=== PATIENT | female | born 1990 | race Caucasian/White ===

== ENCOUNTER 2020-03-23 11:37 | Emergency (ER) | payer OTHER, SELFPAY ==
[2020-03-23 12:01] VITALS: BP 120/83; PULSE 98; RESP 16; TEMP 36.6; O2SAT 100; BMI 41.1
--- NOTE | 2020-03-23 12:16 | ED.GENADULT ---
HPI - General Adult General Chief complaint: General Medical Stated complaint: breast pain Time Seen by Provider: 03/23/20 12:15 History of Present Illness HPI narrative: Patient with history of double mastectomy and breast cancer who has moved here from out of [facility] complains of a sore on her left breast that is painful it has developed over the last 3-4 days, no fever no chills Discomfort is minor Related Data Previous Rx's Medication Instructions Recorded clindamycin HCl 300 mg PO QID 7 Days #28 cap 03/23/20 Allergies Allergy/AdvReac Type Severity Reaction Status Date / Time Penicillins Allergy Anaphylaxis Verified 03/23/20 12:01 Review of Systems Review of Systems: No fever no chills no weakness no confusion no chest pain no abdominal pain no other rash Yes all other systems are reviewed and are negative [facility] Past Medical History Attestation statement: The following information was validated with the patient. [facility] Narrative: History of breast cancer with double mastectomy, she recently moved here from [place] and her oncologist and breast surgeon are in [place], she has no local care Source: nursing notes reviewed Medical History (Updated 03/23/20 @ 12:29 by CATA Portillo) Asthma Breast cancer Depression HTN (hypertension) Tachycardia Surgical History (Updated 03/23/20 @ 12:09 by Sophia Mcmahan) H/O breast reconstruction History of mastectomy Physical Exam Vital Signs: Vital Signs: Last Vital Signs Temp 97.8 F 03/23/20 12:01 Pulse 98 03/23/20 12:01 Resp 16 03/23/20 12:01 BP 120/83 03/23/20 12:01 Pulse Ox 100 03/23/20 12:01 Body Mass Index 41.1 General appearance comfortable no acute distress A&O x3 Neck is supple The chest exam shows the left breast with a 2 cm by 3 cm scabbed area with some mild surrounding erythema, no fluctuance no discharge no significant tenderness no warmth Extremities is full range of motion x4 Neuro no focal deficit Course Course Course Narrative: No abscess to drain, patient is treated for cellulitis With a history of cancer double mastectomy and a lesion on the breast I wanted to ensure close follow-up so I called the surgeon's office and they can see the patient in 4 days and the patient call the office to confirm the appointment so an appointment was made with Dr. Canales for Thursday at 02:00 o'clock Discharge Plan Discharge Clinical Impression: Cellulitis of left breast Patient Disposition: Home, Self-Care Additional Instructions: I called the office of Dr. Canales surgeon and they can see you Thursday at 02:00 o'clock We started antibiotic clindamycin This antibiotic can cause bad diarrhea so take probiotics to prevent antibiotic associated diarrhea Return to the ER any time for worse pain and swelling, spreading redness, fever, any worse condition or any concerns Most important is close follow-up with a surgeon for further evaluation Prescriptions: New clindamycin HCl 300 mg capsule 300 mg PO QID 7 Days Qty: 28 RF: 0 Referrals: Cristino Canales MD [Physician] - 5 days (Patient with history of breast cancer in double mastectomy presents with a left breast infection There was no abscess that was treated with clindamycin and I called the office an appointment is made for next Thursday) Interventions: ED Discharge Assessment Last Done: 03/23/20 12:53 Discharge Date/Time: 03/23/20 12:56
--- NOTE | 2020-03-23 12:38 | PC.NURSE ---
SEEN BY PROVIDER. MEDICATED PER ORDERS. PT CALLING FOR F/U APPOINTMENT
== END 2020-03-23 12:56 | disposition home or self-care (01) ==
PROVIDERS: Emergency Provider Emergency Medicine
DX: N61.0 Mastitis without abscess (principal)
CPT/HCPCS: 99283

== ENCOUNTER → 2020-03-27 13:49 | Outpatient (BNVA) | payer OTHER, SELFPAY | PROVIDERS: Visit Provider Surgery | DX: Z76.89 Persons encountering health services in other specified circumstances (principal) ==

== ENCOUNTER → 2020-04-04 09:18 | Outpatient (BNVA) | payer OTHER, SELFPAY | PROVIDERS: Visit Provider Surgery | DX: Z76.89 Persons encountering health services in other specified circumstances (principal) ==

== ENCOUNTER → 2020-04-20 08:39 | Outpatient (BNVA) | payer OTHER, SELFPAY | PROVIDERS: Visit Provider Surgery | DX: Z76.89 Persons encountering health services in other specified circumstances (principal) ==

== ENCOUNTER 2021-05-09 07:09 | Emergency (ER) | payer OTHER, SELFPAY ==
--- NOTE | ~2021-05-09 | XR_ITS ---
EXAMINATION: XR CHEST CLINICAL INFORMATION: Cough and fever COMPARISON: None TECHNIQUE: Frontal view of the chest was obtained. FINDINGS: Surgical bobbi overlying the lung chaudhary. There is no convincing evidence for an underlying infiltrate. The cardiac silhouette is within normal limits. There is no effusion. XR/XR chest 1V IMPRESSION: No acute finding.
[2021-05-09 07:20] VITALS: BP 121/71; PULSE 120; RESP 22; TEMP 37.6; O2SAT 97; BMI 36.6
--- NOTE | 2021-05-09 07:28 | ED_ITS ---
HPI - URI/Sore Throat General Chief Complaint: Upper Respiratory Symptoms Stated Complaint: upper resp issues asthma Time Seen by Provider: 05/09/21 07:26 Source: patient Mode of arrival: ambulatory Limitations: no limitations History of Present Illness MD elicited complaint: fever, cough, rhinorrhea and sinus pain Pertinent past history: asthma Onset (ago): week(s) (3) Consistency: progressively worsening Severity: moderate Description of mucous: clear Able to tolerate fluids by mouth: Yes Exacerbating factors: other (coughing) Relieving factors: nothing Context: recent travel (did go to at begining of April she is vaccinated - x 2) Associated symptoms: fever, chills, headache, rhinorrhea, nasal congestion, cough and shortness of breath Treatments prior to arrival: cold medicine Related Data Home Medications Medication Instructions Recorded Confirmed albuterol sulfate 90 mcg/actuation 1 inh INHALATION Q4-6H PRN 05/03/20 01/25/21 aerosol inhaler atenolol 50 mg tablet 1 tab PO BID 05/03/20 01/25/21 ondansetron 4 mg disintegrating 1 tab PO Q6-8H PRN 05/03/20 01/25/21 tablet umeclidinium 62.5 mcg/actuation 1 inh INHALATION DAILY 05/03/20 01/25/21 blister powder for inhalation (Incruse Ellipta) Previous Rx's Medication Instructions Recorded gabapentin 300 mg capsule 1 cap PO DAILY #90 cap 05/03/20 tamoxifen 20 mg tablet 10 mg PO BID #60 tab 10/12/20 azithromycin 250 mg tablet 250 mg PO DAILY 4 Days #4 tab 05/09/21 benzonatate 100 mg capsule 100 mg PO TID PRN #30 cap 05/09/21 hydrocodone-homatropine 5 mg-1.5 5 ml PO Q4-6H PRN #473 ml 05/09/21 mg/5 mL oral syrup (Hydrocodone Compound) Allergies Allergy/AdvReac Type Severity Reaction Status Date / Time Penicillins Allergy Anaphylaxis Verified 05/03/20 08:45 Review of Systems 2 Review of Systems: Constitutional : pos Fever, pos Chills ENT/Mouth : No Hoarseness, No sore throat, No Rhinorrhea Eyes: No Redness, No Discharge, No Vision Changes Cardiovascular : No Chest Pain, positive SOB, positive Dyspnea on Exertion, No Edema Respiratory : positive Cough, No Sputum, positive Wheezing, Gastrointestinal : No Nausea, No Vomiting, No Diarrhea, No abdominal Pain Genitourinary : No Dysuria, No Hematuria Musculoskeletal : No joint pain, No Myalgias Skin : No rash Neuro : pos Weakness, No Numbness, No Headache Psych : No anxiety, depression Heme/Lymph: No Bruising, No Bleeding Endocrine : No Polyuria, No Polydipsia All other systems reviewed and are negative [facility] Past Medical History Medical History Anal fissure Asthma Cancer of right breast, stage 1, estrogen receptor positive Depression HTN (hypertension) Tachycardia Surgical History H/O breast reconstruction History of mastectomy Family History Family History Maternal Aunt History of breast cancer History of thyroid cancer Paternal Grandfather History of prostate cancer Social History Social History Alcohol intake: never Patient Tobacco Use Status: Never used Tobacco Use of substances other than those prescribed or required for medical reasons: No Advance Directives: No Advance Directives Information Provided: No Patient : No Physical Exam Vital Signs: Vital Signs: Last Vital Signs Temp 98.6 F 05/09/21 10:13 Pulse 95 05/09/21 10:13 Resp 18 05/09/21 10:13 BP 98/65 05/09/21 10:13 Pulse Ox 98 05/09/21 10:13 BMI result Body Mass Index 36.6 Appearance: Alert. Oriented X3. No acute distress. Eyes: Pupils equal, round and reactive to light. ENT: Pharynx normal. L ear bulging TM with moderate erythema small effusion no perforation Neck: Normal inspection. Neck supple. CVS: tachycardic heart rate and rhythm. Pulses normal. Respiratory: No respiratory distress. Breath sounds diminished throughout with spastic cough Abdomen: Soft and nontender. Skin: Skin warm and dry. Normal skin color. Normal skin turgor. Extremities: No lower extremity edema. No calf ttp Neuro: Oriented X 3. No motor deficit. No sensory deficit. Course Course Course Narrative: patient's biggest issue is with dry cough - attempting to aid in anti tussive and to help her sleep azithromycin for L AOM cough is very forced at this time, did discuss with patient that given her forced coughing, clear lungs no hypoxia that she may cause damage, there is a component of anxiety, will add on ativan to allow her to rest and get rid of the cough reflex she has at this time clear lungs, no wheezes other than cough has done well no hypoxia anticipate admisssion MDM - URI/Sore Throat MDM Narrative Medical decision making narrative: 30 yo female with URI symptoms, fevers, cough, worsening symptoms over three weeks vaccinated x 2 - here with fevers, cough, L AOM - at this time will need 5mg neb for asthma, IV steroids, fluids, tylenol, antibiotics for L AOM - dispo per results and improvement. She has hx of cancer but this seems infectious and not related to PE. Lab Data Labs: Lab Results 05/09/21 Range/Units 07:27 Influenza Type A (PCR) NEGATIVE (Negative) Influenza Type B (PCR) NEGATIVE (Negative) RSV RNA Qual (PCR) NEGATIVE (Negative) SARS-CoV-2 RNA (RT-PCR) NEGATIVE (Negative) Discharge Plan Discharge Clinical Impression: Otitis media, Bronchitis Patient Disposition: Home, Self-Care Instructions: Ear Infection (ED), Acute Bronchitis (ED) Additional Instructions: return to ED for any worsening symptoms or concerns Prescriptions: New azithromycin 250 mg tablet 250 mg PO DAILY 4 Days Qty: 4 RF: 0 benzonatate 100 mg capsule 100 mg PO TID PRN (Reason: cough) Qty: 30 RF: 0 hydrocodone-homatropine [Hydrocodone Compound] 5-1.5 mg/5 mL syrup 5 ml PO Q4-6H PRN (Reason: cough) Qty: 473 RF: 0 No Action albuterol sulfate 90 mcg/actuation HFA aerosol inhaler 1 inh inhalation Q4-6H PRN (Reason: Shortness Of Breath) RF: 0 ondansetron 4 mg tablet,disintegrating 1 tab PO Q6-8H PRN (Reason: Nausea) RF: 0 atenolol 50 mg tablet 1 tab PO BID RF: 0 Incruse Ellipta 62.5 mcg/actuation blister with device 1 inh inhalation DAILY RF: 0 gabapentin 300 mg capsule 1 cap PO DAILY Qty: 90 RF: 4 tamoxifen 20 mg tablet 10 mg PO BID Qty: 60 RF: 10 Referrals: Physician,None [Primary Care Provider] - 3 days (if not better) Stand Alone Forms: Work/School Release
[2021-05-09] MEDS: 0.9 % Sodium Chloride 1,000 ML 999 ML IV (07:44)
[2021-05-09 07:48] VITALS: O2SAT 97
[2021-05-09] MEDS: Albuterol Sulfate (0.083%) 2.5 MG/3 ML VIAL.NEB 5 MG INHALE (07:48)
[2021-05-09 07:50] VITALS: PULSE 106; RESP 20; O2SAT 95
[2021-05-09] MEDS: Benzonatate 100 MG CAPSULE PO ×2 (07:53→09:06)
[2021-05-09] MEDS: methylPREDNISolone Sod Succ 125 MG/2 ML VIAL IVPUSH (07:53)
[2021-05-09 08:11] LABS: Influenza A PCR NEGATIVE (Negative); Influenza B PCR NEGATIVE (Negative); Resp Syncy Virus RNA Qual PCR NEGATIVE (Negative); SARS COV2 PCR INHOUSE NEGATIVE (Negative)
[2021-05-09] MEDS: HYDROcodone/Homat 5/1.5/5 ML 5 ML SYRUP PO (08:46)
[2021-05-09] MEDS: Azithromycin 500 MG TABLET PO (08:46)
[2021-05-09] MEDS: diphenhydrAMINE HCL 50 MG/ML VIAL 25 MG IVPUSH (09:06)
--- NOTE | 2021-05-09 09:10 | PC.NURSE ---
pt medicated further per emar, has profound cough, given ice water. lights dimmed for comfort. continuing to monitor for effect.
[2021-05-09] MEDS: Morphine Sulfate 4 MG/ML CARTRIDGE IVPUSH (09:22)
[2021-05-09] MEDS: LORazepam 2 MG/ML VIAL 1 MG IVPUSH (09:55)
[2021-05-09 10:13] VITALS: BP 98/65; PULSE 95; RESP 18; TEMP 37; O2SAT 98
--- NOTE | 2021-05-09 11:05 | PC.NURSE ---
pt needs to find safe ride home d/t meds given during visit. pt sts feeling dizzy at this time, given commode to use restroom at bedside.
== END 2021-05-09 11:33 | disposition home or self-care (01) ==
PROVIDERS: Emergency Provider Emergency Medicine
DX: J40 Bronchitis, not specified as acute or chronic (principal); H66.93 Otitis media, unspecified, bilateral; R50.9 Fever, unspecified; R51.9 Headache, unspecified; R06.02 Shortness of breath; Z20.822 Contact with and (suspected) exposure to COVID-19; Z79.899 Other long term (current) drug therapy
CPT/HCPCS: 0241U; 71045; 94640; 94644; 96361; 96374; 96375; 99285; J1200; J2060; J2270; J2930

== ENCOUNTER → 2024-01-19 10:35 | Outpatient (RCR) | payer BC, SELFPAY ==
[2020-05-03 08:43] VITALS: BP 121/69; PULSE 88; RESP 18; TEMP 36.5; O2SAT 98; BMI 41.1
--- NOTE | 2020-05-03 09:16 | PM.HEMONCCN ---
Subjective - Subjective Chief complaint: History of right breast cancer Consult date: 05/03/20 Medical Summary: Diagnosis: RT breast cancer 2018 in [place]. Right radical mastectomy with reconstruction and left prophylactic mastectomy with flap reconstruction. Diagnosed in 2018 when she was 27 years old. She was diagnosed with an right breast infiltrating ductal carcinoma, grade 1, ER [place] positive , sentinel node negative. The tumor apparently measured approximately 2 cm and was palpable on self examination. She underwent genetic testing which was negative. Her family history is significant for maternal aunt with breast cancer at the age of 48. Another maternal aunt was treated for thyroid cancer. The patient subsequently underwent a right mastectomy with sentinel node biopsy, immediate reconstruction as well as a prophylactic left mastectomy with immediate reconstruction using an abdominal flap. The surgery was performed at the [facility] , and was complicated by a an abdominal wound infection on the left-hand side. She subsequently required a revision of the lateral portion of both breasts because of fat folds. She did not undergo chemotherapy but was started on tamoxifen. HPI - Consult Narrative Reason for consult: Right breast cancer Narrative: Carolina Waters is a 29 year old female who was diagnosed with left breast infiltrating ductal carcinoma at the age of [age]. She has undergone surgery, mastectomy followed by start of tamoxifen. She is taking tamoxifen 10 mg twice a day. She does get some nausea because of tamoxifen for which she takes Zofran as needed. It also causes significant hot flashes for which she is on gabapentin. She presented to the emergency department at [facility] a few weeks ago because of open wound on the reconstructed left breast site. She was treated with antibiotics, the skin lesion has since healed nicely. She was seen by Dr. Canales and has been recommended to Oncology for further management. She has not had or diagnostic mammogram since her last mammogram in 2018. 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 Review of Systems - Constitutional Reports no additional constitutional complaints - Cardiovascular Reports no additional cardiovascular complaints - Respiratory Reports no additional respiratory complaints - Gastrointestinal Reports no additional gastrointestinal complaints - Genitourinary Reports hot flashes - Integumentary/Breasts Skin/Breast: Reports no additional skin complaints Oncology Screenings - ECOG Performance Status ECOG Performance Status: 0 [facility] Medical History: Medical History (Last Updated 05/03/20 @ 15:56 by Francie Lloyd MD) Anal fissure Asthma Cancer of right breast, stage 1, estrogen receptor positive Depression HTN (hypertension) Tachycardia Family History: Family History (Last Reviewed 04/20/20 @ 09:20 by Cristino Canales MD) Maternal Aunt History of breast cancer History of thyroid cancer Paternal Grandfather History of prostate cancer Surgical History: Surgical History (Last Reviewed 04/20/20 @ 09:20 by Cristino Canales MD) H/O breast reconstruction History of mastectomy Smoking status: Never smoker Home Medications and Allergies Home Medications Medication Instructions Recorded Confirmed Type albuterol sulfate 1 inh INHALATION Q4-6H PRN 05/03/20 05/03/20 History atenolol 1 tab PO BID 05/03/20 05/03/20 History buspirone 1 tab PO BID 05/03/20 05/03/20 History mirtazapine 1 tab PO BEDTIME 05/03/20 05/03/20 History montelukast 1 tab PO DAILY 05/03/20 05/03/20 History ondansetron 1 tab PO Q6-8H PRN 05/03/20 05/03/20 History umeclidinium [Incruse Ellipta] 1 inh INHALATION DAILY 05/03/20 05/03/20 History venlafaxine 1 tab PO DAILY 05/03/20 05/03/20 History Allergies Allergy/AdvReac Type Severity Reaction Status Date / Time Penicillins Allergy Anaphylaxis Verified 05/03/20 08:45 Physical Exam Vital signs: Vital Signs Temp 97.7 F 05/03/20 08:43 Pulse 88 05/03/20 08:43 Resp 18 05/03/20 08:43 BP 121/69 05/03/20 08:43 Pulse Ox 98 05/03/20 08:43 Intake & Output 05/02/20 05/03/20 05/03/20 18:59 06:59 18:59 Other: Weight 108.6 kg Weight 108.6 kg - Constitutional Present: no acute distress - Routine HEENT Exam Head: Present: normal inspection Eye: Present: EOMI, normal appearance - Routine Neck Exam Absent: lymphadenopathy, thyromegaly - Routine Chest/Breast/Axilla Exam Breast: Present: erythema, left mastectomy Axillae: Absent: lymphadenopathy Comments: Left breast, shows superficial linear wound about 1 cm. No associated swelling or discharge. Mild erythema. - Routine Respiratory Exam Present: CTAB - Routine Cardiovascular Exam Cardiovascular: Present: RRR, S1, S2 Comments: Healed surgical scar left lower abdomen and flank. No associated nodularity or tenderness. - Routine Abdominal Exam Present: soft - Routine Skin Exam Present: intact. Absent: erythema Hem/Onc Consult Result - Labs CBC & Chem 7: 05/03/20 09:20 05/03/20 09:20 Assessment and Plan (1) Infiltrating ductal carcinoma of right breast, estrogen receptor positive, stage 1 Status: Acute 1. This is the pleasant 29-year-old premenopausal woman diagnosed with right breast infiltrating ductal carcinoma in 2018 at age 27. She underwent right radical mastectomy/sentinel node biopsy, immediate reconstruction followed by left prophylactic mastectomy and delayed flap reconstruction. This was stage I cancer, ER positive and patient was started on tamoxifen in 2018. I have requested pathology report and records from her previous oncologist in [place]. She is doing well on tamoxifen, does have some hot flashes for which she is on gabapentin. She divides the dose, 10 mg twice daily which she tolerates better, causes less nausea. She developed a wound/ulcer on the skin of her left breast which was superficial and now healing well. Breast examination and blood work today is normal. She does not need any imaging studies since she has had bilateral reconstruction. She will be followed closely with physical examination. She has had genetic testing done and reportedly this was negative. Follow-up in 6 months.
[2020-05-03 09:24] LABS: MANUAL DIFF FLAG NO
[2020-05-03 09:27] LABS: Basophils Absolute Auto 0.1 X10*3/uL (0.0-0.2); Basophils Percent Auto 1.1 % (0-2); Hematocrit 37.8 % (37-47); Hemoglobin 12.1 g/dl (12.0-16.0); Lymphocytes Absolute Auto 2.6 X10*3/uL (1.2-4.9); Lymphocytes Percent Auto 47.4 % (20-40); Mean Corpuscular Hemoglobin 27.6 pg (27.0-33.0); Mean Corpuscular Volume 86.1 fL (80-98); Mean Platelet Volume 10.2 fL (9.4-12.3); Monocytes Absolute Auto 0.5 X10*3/uL (0.1-1.2); Monocytes Percent Auto 9.1 % (2-11); Neutrophils Absolute Auto 2.3 X10*3/uL (2.0-8.3); Neutrophils Percent Auto 42.4 % (45-73); Platelet Count 266 X10*3/uL (160-400); Red Blood Count 4.39 X10*6/uL (4.20-5.50); Red Cell Distribution Width 12.1 % (11.0-16.0); White Blood Count 5.4 X10*3/uL (4.8-10.8)
[2020-05-03 09:52] LABS: Alanine Aminotransferase 19 U/L (0-31); Albumin Level 3.9 g/dL (3.5-5.0); Alkaline Phosphatase 40 U/L (39-117); Anion Gap 10 (12-20); Aspartate Amino Transferase 18 U/L (5-31); Bilirubin Total 0.3 mg/dL (0.0-1.0); Blood Urea Nitrogen 11 mg/dL (9-16); Calcium 8.6 mg/dL (8.4-10.2); Carbon Dioxide 28 mmol/L (22-29); Chloride 103 mmol/L (96-108); Creatinine Clr Calc Pharmacy 87.6; Estimated Glomerular Filt Rate 57; Glucose Random 85 mg/dL (60-115); Potassium 4.2 mmol/l (3.3-5.1); Sodium 137 mmol/L (135-145); Total Protein 6.2 g/dL (6.5-8.0)
--- NOTE | 2020-05-03 11:21 | MHC.HEMONC ---
Patient here for consult. Summary updated with nurse. Provider seen patient. Labs drawn. Follow-up booked.
[2020-05-04 14:27] LABS: CA 27.29 17 U/mL (<38)
[2020-10-12 09:27] VITALS: BP 127/70; PULSE 86; RESP 14; TEMP 36.4; O2SAT 99; BMI 39.6
--- NOTE | 2020-10-12 09:33 | P.PNHO_ITS ---
Medical Summary - Medical Summary Date of Service: 10/12/20 Chief complaint: Follow-up Medical Summary: Diagnosis: RT breast cancer 2018 in [place]. Right radical mastectomy with reconstruction and left prophylactic mastectomy with flap reconstruction. Diagnosed in 2018 when she was 27 years old. She was diagnosed with an right breast infiltrating ductal carcinoma, grade 1, ER [place] positive , sentinel node negative. The tumor apparently measured approximately 2 cm and was palpable on self examination. She underwent genetic testing which was negative. Her family history is significant for maternal aunt with breast cancer at the age of 48. Another maternal aunt was treated for thyroid cancer. The patient subsequently underwent a right mastectomy with sentinel node biopsy, immediate reconstruction as well as a prophylactic left mastectomy with immediate reconstruction using an abdominal flap. The surgery was performed at the [facility] , and was complicated by a an abdominal wound infection on the left-hand side. She subsequently required a revision of the lateral portion of both breasts because of fat folds. She did not undergo chemotherapy but was started on tamoxifen. Interval History Interval history: patient is here in follow-up. She is doing okay but reports that she did not have health insurance for a few weeks and was not on tamoxifen. She reports irregular menstrual cycles. She has not yet established with a manager of financial or primary care physician. She has refills of tamoxifen. She denies any complaints pertaining to her breast implants. Left breast infection has now healed completely. Review of Systems - Constitutional Reports as per HPI, Reports no additional constitutional complaints - Cardiovascular Reports no additional cardiovascular complaints - Respiratory Reports no additional respiratory complaints - Gastrointestinal Reports no additional gastrointestinal complaints [facility] Medical History: Medical History (Last Updated 05/03/20 @ 15:56 by Francie Lloyd MD) Anal fissure Asthma Cancer of right breast, stage 1, estrogen receptor positive Depression HTN (hypertension) Tachycardia Family History: Family History (Last Reviewed 04/20/20 @ 09:20 by Cristino Canales MD) Maternal Aunt History of breast cancer History of thyroid cancer Paternal Grandfather History of prostate cancer Surgical History: Surgical History (Last Reviewed 04/20/20 @ 09:20 by Cristino Canales MD) H/O breast reconstruction History of mastectomy Social History: Social History (Last Updated 10/12/20 @ 09:30 by Anastasiya Schwab) Alcohol History: Alcohol intake: current Alcohol History Details: Alcohol intake frequency: holiday/special occasion Tobacco History: Patient Tobacco Use Status: Never used Tobacco Substance Use History: Use of substances other than those prescribed or required for medical reasons : No Oncology Screenings - ECOG Performance Status ECOG Performance Status: 0 Home Medications and Allergies Home Medications Medication Instructions Recorded Confirmed Type albuterol sulfate 1 inh INHALATION Q4-6H PRN 05/03/20 05/03/20 History atenolol 1 tab PO BID 05/03/20 05/03/20 History buspirone 1 tab PO BID 05/03/20 05/03/20 History mirtazapine 1 tab PO BEDTIME 05/03/20 05/03/20 History montelukast 1 tab PO DAILY 05/03/20 05/03/20 History ondansetron 1 tab PO Q6-8H PRN 05/03/20 05/03/20 History umeclidinium [Incruse Ellipta] 1 inh INHALATION DAILY 05/03/20 05/03/20 History venlafaxine 1 tab PO DAILY 05/03/20 05/03/20 History Allergies Allergy/AdvReac Type Severity Reaction Status Date / Time Penicillins Allergy Anaphylaxis Verified 05/03/20 08:45 Exam Vital signs: Vital Signs Temp 97.5 F 10/12/20 09:27 Pulse 86 10/12/20 09:27 Resp 14 10/12/20 09:27 BP 127/70 10/12/20 09:27 Pulse Ox 99 10/12/20 09:27 Intake & Output 10/11/20 10/12/20 10/12/20 18:59 06:59 18:59 Other: Weight 104.8 kg [place] Weight in Grams [id number] Weight 104.8 kg Body Mass Index 39.6 - Constitutional Present: no acute distress - Routine HEENT Exam Head: Present: normal inspection - Routine Respiratory Exam Present: CTAB - Routine Cardiovascular Exam Cardiovascular: Present: RRR, S1, S2 - Routine Abdominal Exam Present: soft - Routine Skin Exam Present: intact. Absent: erythema Data - Labs CBC & Chem 7: 05/03/20 09:20 05/03/20 09:20 Labs: 05/03/20 09:20 CA 27.29 Routine Complete Blood Count Auto Diff Routine Comprehensive Met. Panel Routine Laboratory Last Values WBC 5.4 X10*3/uL (4.8-10.8) 05/03/20 09:20 RBC 4.39 X10*6/uL (4.20-5.50) 05/03/20 09:20 Hgb 12.1 g/dl (12.0-16.0) 05/03/20 09:20 Hct 37.8 % (37-47) 05/03/20 09:20 MCV 86.1 fL (80-98) 05/03/20 09:20 MCH 27.6 pg (27.0-33.0) 05/03/20 09:20 MCHC 32.0 g/dl (31.0-35.0) 05/03/20 09:20 RDW 12.1 % (11.0-16.0) 05/03/20 09:20 Plt Count 266 X10*3/uL (160-400) 05/03/20 09:20 MPV 10.2 fL (9.4-12.3) 05/03/20 09:20 Immature Gran % (Auto) 0.0 % (0.0-0.4) 05/03/20 09:20 Neut % (Auto) 42.4 % (45-73) L 05/03/20 09:20 Lymph % (Auto) 47.4 % (20-40) H 05/03/20 09:20 [place] % (Auto) 9.1 % (2-11) 05/03/20 09:20 Eos % (Auto) 0.0 % (0-4) 05/03/20 09:20 Baso % (Auto) 1.1 % (0-2) 05/03/20 09:20 Lymph # (Auto) 2.6 X10*3/uL (1.2-4.9) 05/03/20 09:20 [place] # (Auto) 0.5 X10*3/uL (0.1-1.2) 05/03/20 09:20 Eos # (Auto) 0.0 X10*3/uL (0.0-0.4) 05/03/20 09:20 Baso # (Auto) 0.1 X10*3/uL (0.0-0.2) 05/03/20 09:20 Abs Immat Gran (auto) 0.00 X10*3/uL (0.00-0.03) 05/03/20 09:20 Absolute Neuts (auto) 2.3 X10*3/uL (2.0-8.3) 05/03/20 09:20 Absolute Nucleated RBC 0.000 X10*3/uL (0.0-0.012) 05/03/20 09:20 Nucleated RBC % (auto) 0.0 /100WBC (0.0-0.2) 05/03/20 09:20 Sodium 137 mmol/L (135-145) 05/03/20 09:20 Potassium 4.2 mmol/l (3.3-5.1) 05/03/20 09:20 Chloride 103 mmol/L (96-108) 05/03/20 09:20 Carbon Dioxide 28 mmol/L (22-29) 05/03/20 09:20 Anion Gap 10 (12-20) L 05/03/20 09:20 BUN 11 mg/dL (9-16) 05/03/20 09:20 Creatinine 1.13 mg/dL (0.5-1.4) 05/03/20 09:20 Estim Creat Clear Calc 87.6 05/03/20 09:20 Estimated GFR 57 05/03/20 09:20 Random Glucose 85 mg/dL (60-115) 05/03/20 09:20 Calcium 8.6 mg/dL (8.4-10.2) 05/03/20 09:20 Total Bilirubin 0.3 mg/dL (0.0-1.0) 05/03/20 09:20 AST 18 U/L (5-31) 05/03/20 09:20 ALT 19 U/L (0-31) 05/03/20 09:20 Alkaline Phosphatase 40 U/L (39-117) 05/03/20 09:20 Total Protein 6.2 g/dL (6.5-8.0) L 05/03/20 09:20 Albumin 3.9 g/dL (3.5-5.0) 05/03/20 09:20 CA 27-29 17 U/mL (<38) 05/03/20 09:20 Progress Note: A/P (1) Infiltrating ductal carcinoma of right breast, estrogen receptor positive, stage 1 Status: Chronic Assessment and plan: 1. This is the pleasant 30-year-old premenopausal woman diagnosed with right breast infiltrating ductal carcinoma in 2018 at age 27. She underwent right radical mastectomy/sentinel node biopsy, immediate reconstruction followed by left prophylactic mastectomy and delayed flap reconstruction. This was stage I cancer, ER positive and patient was started on tamoxifen in 2018. I have requested pathology report and records from her previous oncologist in [place]. She is doing well on tamoxifen, does have some hot flashes for which she is on gabapentin. She divides the dose, 10 mg twice daily which she tolerates better, causes less nausea. Physical examination today was normal. Follow-up in 6 months. - Time Spent With Patient Total time spent is greater than 50% in coordination of care (as documented) at patient's floor/unit and/or counseling patient: 15 - 24 minutes
--- NOTE | 2020-10-12 10:51 | MHC.HEMONCMA ---
Patient came in for a follow up, states she is doing well. The patient states that she has not had insurance for over a month and has not been taking her medications. She states that she needs refills on all of them and needs to get a PCP and a Rn Anesthesiology since she moved here from [place]. Clinical summary was reviewed and updated. Patient had labs and will return in 6 months for a follow up. Dr Lloyd referred the patient to Dr Bello for Rn Anesthesiology, I will call the patient with the date and time for this appt once I get one.
--- NOTE | 2021-01-25 09:44 | P.PNHO_ITS ---
Medical Summary - Medical Summary Date of Service: 01/25/21 Chief complaint: Follow-up Medical Summary: Diagnosis: RT breast cancer 2018 in [place]. Right radical mastectomy with reconstruction and left prophylactic mastectomy with flap reconstruction. Diagnosed in 2018 when she was 27 years old. She was diagnosed with an right breast infiltrating ductal carcinoma, grade 1, ER ME positive , sentinel node negative. The tumor apparently measured approximately 2 cm and was palpable on self examination. She underwent genetic testing which was negative. Her family history is significant for maternal aunt with breast cancer at the age of 48. Another maternal aunt was treated for thyroid cancer. The patient subsequently underwent a right mastectomy with sentinel node biopsy, immediate reconstruction as well as a prophylactic left mastectomy with immediate reconstruction using an abdominal flap. The surgery was performed at the [facility] , and was complicated by a an abdominal wound infection on the left-hand side. She subsequently required a revision of the lateral portion of both breasts because of fat folds. She did not undergo chemotherapy but was started on tamoxifen. Interval History Interval history: patient is here in follow-up. She is taking tamoxifen regularly. Her menstr ual cycles have been quite heavy. She has an IUD. She denies any complaints pertaining to her breast implants. She is doing quite well overall. Review of Systems - Constitutional Reports as per HPI, Reports no additional constitutional complaints - Cardiovascular Reports no additional cardiovascular complaints - Respiratory Reports no additional respiratory complaints [facility] Medical History: Medical History (Last Reviewed 01/25/21 @ 09:59 by Jeanine Ch) Anal fissure Asthma Cancer of right breast, stage 1, estrogen receptor positive Depression HTN (hypertension) Tachycardia Family History: Family History (Last Reviewed 01/25/21 @ 09:59 by Jeanine Ch) Maternal Aunt History of breast cancer History of thyroid cancer Paternal Grandfather History of prostate cancer Surgical History: Surgical History (Last Reviewed 01/25/21 @ 09:59 by Jeanine Ch) H/O breast reconstruction History of mastectomy Social History: Social History (Last Reviewed 01/25/21 @ 09:59 by Jeanine Ch) Alcohol History: Alcohol intake: current Alcohol History Details: Alcohol intake frequency: holiday/special occasion Tobacco History: Patient Tobacco Use Status: Never used Tobacco Substance Use History: Use of substances other than those prescribed or required for medical reasons : No Oncology Screenings - ECOG Performance Status ECOG Performance Status: 1 Home Medications and Allergies Home Medications Medication Instructions Recorded Confirmed Type albuterol sulfate 90 mcg/actuation 1 inh INHALATION Q4-6H PRN 05/03/20 01/25/21 History aerosol inhaler atenolol 50 mg tablet 1 tab PO BID 05/03/20 01/25/21 History ondansetron 4 mg disintegrating 1 tab PO Q6-8H PRN 05/03/20 01/25/21 History tablet umeclidinium 62.5 mcg/actuation 1 inh INHALATION DAILY 05/03/20 01/25/21 History blister powder for inhalation (Incruse Ellipta) Allergies Allergy/AdvReac Type Severity Reaction Status Date / Time Penicillins Allergy Anaphylaxis Verified 05/03/20 08:45 Exam Vital signs: Vital Signs Temp 97.5 F 10/12/20 09:27 Pulse 86 10/12/20 09:27 Resp 14 10/12/20 09:27 BP 127/70 10/12/20 09:27 Pulse Ox 99 10/12/20 09:27 Weight 104.8 kg Body Mass Index 39.6 - Constitutional Present: no acute distress - Routine HEENT Exam Head: Present: normal inspection - Routine Respiratory Exam Present: CTAB - Routine Cardiovascular Exam Cardiovascular: Present: RRR, S1, S2 - Routine Abdominal Exam Present: soft - Routine Skin Exam Present: intact. Absent: erythema Data - Labs CBC & Chem 7: 01/25/21 10:12 05/03/20 09:20 Labs: 05/03/20 09:20 CA 27.29 Routine Complete Blood Count Auto Diff Routine Comprehensive Met. Panel Routine Laboratory Last Values WBC 5.4 X10*3/uL (4.8-10.8) 05/03/20 09:20 RBC 4.39 X10*6/uL (4.20-5.50) 05/03/20 09:20 Hgb 12.1 g/dl (12.0-16.0) 05/03/20 09:20 Hct 37.8 % (37-47) 05/03/20 09:20 MCV 86.1 fL (80-98) 05/03/20 09:20 MCH 27.6 pg (27.0-33.0) 05/03/20 09:20 MCHC 32.0 g/dl (31.0-35.0) 05/03/20 09:20 RDW 12.1 % (11.0-16.0) 05/03/20 09:20 Plt Count 266 X10*3/uL (160-400) 05/03/20 09:20 MPV 10.2 fL (9.4-12.3) 05/03/20 09:20 Immature Gran % (Auto) 0.0 % (0.0-0.4) 05/03/20 09:20 Neut % (Auto) 42.4 % (45-73) L 05/03/20 09:20 Lymph % (Auto) 47.4 % (20-40) H 05/03/20 09:20 Carson % (Auto) 9.1 % (2-11) 05/03/20 09:20 Eos % (Auto) 0.0 % (0-4) 05/03/20 09:20 Baso % (Auto) 1.1 % (0-2) 05/03/20 09:20 Lymph # (Auto) 2.6 X10*3/uL (1.2-4.9) 05/03/20 09:20 Carson # (Auto) 0.5 X10*3/uL (0.1-1.2) 05/03/20 09:20 Eos # (Auto) 0.0 X10*3/uL (0.0-0.4) 05/03/20 09:20 Baso # (Auto) 0.1 X10*3/uL (0.0-0.2) 05/03/20 09:20 Abs Immat Gran (auto) 0.00 X10*3/uL (0.00-0.03) 05/03/20 09:20 Absolute Neuts (auto) 2.3 X10*3/uL (2.0-8.3) 05/03/20 09:20 Absolute Nucleated RBC 0.000 X10*3/uL (0.0-0.012) 05/03/20 09:20 Nucleated RBC % (auto) 0.0 /100WBC (0.0-0.2) 05/03/20 09:20 Sodium 137 mmol/L (135-145) 05/03/20 09:20 Potassium 4.2 mmol/l (3.3-5.1) 05/03/20 09:20 Chloride 103 mmol/L (96-108) 05/03/20 09:20 Carbon Dioxide 28 mmol/L (22-29) 05/03/20 09:20 Anion Gap 10 (12-20) L 05/03/20 09:20 BUN 11 mg/dL (9-16) 05/03/20 09:20 Creatinine 1.13 mg/dL (0.5-1.4) 05/03/20 09:20 Estim Creat Clear Calc 87.6 05/03/20 09:20 Estimated GFR 57 05/03/20 09:20 Random Glucose 85 mg/dL (60-115) 05/03/20 09:20 Calcium 8.6 mg/dL (8.4-10.2) 05/03/20 09:20 Total Bilirubin 0.3 mg/dL (0.0-1.0) 05/03/20 09:20 AST 18 U/L (5-31) 05/03/20 09:20 ALT 19 U/L (0-31) 05/03/20 09:20 Alkaline Phosphatase 40 U/L (39-117) 05/03/20 09:20 Total Protein 6.2 g/dL (6.5-8.0) L 05/03/20 09:20 Albumin 3.9 g/dL (3.5-5.0) 05/03/20 09:20 CA 27-29 17 U/mL (<38) 05/03/20 09:20 Assessment and Plan Patient Active problem list reviewed?: Yes (1) Infiltrating ductal carcinoma of right breast, estrogen receptor positive, stage 1 Status: Chronic Assessment and plan: 1. This is the pleasant 30-year-old premenopausal woman diagnosed with right breast infiltrating ductal carcinoma in 2018 at age 27. She underwent right radical mastectomy/sentinel node biopsy, immediate reconstruction followed by left prophylactic mastectomy and delayed flap reconstruction. This was stage I cancer, ER positive and patient was started on tamoxifen in 2018. I have requested pathology report and records from her previous oncologist in [place]. She is doing well on tamoxifen. She divides the dose, 10 mg twice daily which she tolerates better, causes less nausea. Physical examination and blood work today was normal. Follow-up in 6 months. - Time Spent With Patient Time Spent with Patient (in minutes): 15
[2021-01-25 09:58] VITALS: BP 118/71; PULSE 72; RESP 16; TEMP 36.2; O2SAT 99; BMI 39.0
[2021-01-25 10:40] LABS: MANUAL DIFF FLAG NO
[2021-01-25 10:42] LABS: Basophils Percent Auto 0.6 % (0-2); Hematocrit 39.7 % (37-47); Hemoglobin 12.8 g/dl (12.0-16.0); Imm Gran Abs Auto 0.01 X10*3/uL (0.00-0.03); Imm Gran Pct Auto 0.1 % (0.0-0.4); Lymphocytes Absolute Auto 2.4 X10*3/uL (1.2-4.9); Lymphocytes Percent Auto 35.2 % (20-40); Mean Corpuscular HGB Conc 32.2 g/dl (31.0-35.0); Mean Corpuscular Volume 86.9 fL (80-98); Mean Platelet Volume 11.4 fL (9.4-12.3); Monocytes Absolute Auto 0.5 X10*3/uL (0.1-1.2); Monocytes Percent Auto 7.6 % (2-11); Neutrophils Absolute Auto 3.8 X10*3/uL (2.0-8.3); Neutrophils Percent Auto 56.5 % (45-73); Platelet Count 229 X10*3/uL (160-400); Red Blood Count 4.57 X10*6/uL (4.20-5.50); Red Cell Distribution Width 12.6 % (11.0-16.0); White Blood Count 6.7 X10*3/uL (4.8-10.8)
[2021-01-25 11:09] LABS: Alanine Aminotransferase 15 U/L (0-31); Albumin Level 4.3 g/dL (3.5-5.0); Alkaline Phosphatase 49 U/L (39-117); Anion Gap 12 (12-20); Aspartate Amino Transferase 14 U/L (5-31); Bilirubin Total 0.4 mg/dL (0.0-1.0); Blood Urea Nitrogen 15 mg/dL (9-16); Calcium 9.4 mg/dL (8.4-10.2); Carbon Dioxide 25 mmol/L (22-29); Chloride 106 mmol/L (96-108); Creatinine Clr Calc Pharmacy 109.7; Estimated Glomerular Filt Rate > 60; Glucose Random 105 mg/dL (60-115); Potassium 4.7 mmol/L (3.3-5.1); Sodium 138 mmol/L (135-145); Total Protein 6.8 g/dL (6.5-8.0)
--- NOTE | 2021-01-25 16:01 | MHC.HEMONCMA ---
pt came in for onc f/u and states they are doing well. Clinical summary was updated and labs were drawn. pt will be in 6 months on 08/02/2021 for f/u apt.
--- NOTE | 2021-08-02 14:03 | HE.ONCSEC ---
CALLED PT DUE TO N/S, PATIENT DID NOT ANSWER I LEFT A VOICEMAIL . N/S LETTER MAILED .
== END | disposition home or self-care (01) ==
LOC: HO.ONC 05-03 08:28
PROVIDERS: Referring Provider Surgery; Visit Provider Internal Medicine
DX: C50.911 Malignant neoplasm of unspecified site of right female breast (principal); Z79.810 Long term (current) use of selective estrogen receptor modulators (SERMs); Z17.0 Estrogen receptor positive status [ER+]; Z90.13 Acquired absence of bilateral breasts and nipples
CPT/HCPCS: 36415; 80053; 85025; 86300; 99203